=== PATIENT | male | born 1930 | race Caucasian/White ===

== ENCOUNTER → 2016-09-02 | Outpatient (CLI) | payer MEDICARE, OTHER | END | disposition home or self-care (01) | LOC: CFH 14:50 | PROVIDERS: ATTEND Internal Medicine Cardiovascular Disease | DX: I65.23 Occlusion and stenosis of bilateral carotid arteries (principal); I63.8 Other cerebral infarction; G31.89 Other specified degenerative diseases of nervous system; J32.2 Chronic ethmoidal sinusitis; J32.0 Chronic maxillary sinusitis | CPT/HCPCS: 70450; 93880 ==

== ENCOUNTER 2018-01-17 14:44 | Inpatient (IN) | payer MEDICARE, OTHER ==
[~2018-01-17] VITALS: Ht 175.3 cm; Wt 98.7 kg
[2018-01-17] MEDS ORDERED: SODIUM CHLORIDE FLUSH 10ML SYR IVF ONE (15:00)
[2018-01-17 15:08] LABS: BASOPHILS # (AUTO) 0.06 x10^3/uL (0-0.1); BASOPHILS % (AUTO) 1 % (0-1); EOSINOPHILS # (AUTO) 0.29 x10^3/uL (0-0.4); EOSINOPHILS % (AUTO) 4 % (1-7); LYMPHOCYTES # (AUTO) 1.61 x10^3/uL (1-3.4); LYMPHOCYTES % (AUTO) 21 % (22-44); MD NO; MEAN CORPUSCULAR HEMOGLOBIN 33.8 pg (27.5-34.5); MEAN CORPUSCULAR HGB CONC 34.2 g/dL (33.2-36.2); MEAN CORPUSCULAR VOLUME 98.6 fL (81-97); MEAN PLATELET VOLUME 8.1 fL (7.4-10.4); MONOCYTES # (AUTO) 0.66 x10^3/uL (0.2-0.8); MONOCYTES % (AUTO) 9 % (2-9); NEUTROPHILS # (AUTO) 4.92 x10^3/uL (1.8-6.8); NEUTROPHILS % (AUTO) 65 % (42-75); PLATELET COUNT 165 x10^3/uL (130-400); RED BLOOD COUNT 4.08 x10^6/uL (4.38-5.82); RED CELL DISTRIBUTION WIDTH 13.2 % (9.4-14.8)
[2018-01-17 15:19] LABS: ALBUMIN 3.5 g/dL (3.4-5.0); ANION GAP 4 mmol/L (5-15); CALCIUM 8.6 mg/dL (8.5-10.1); CHLORIDE 113 mmol/L (98-107)
[2018-01-17 15:20] LABS: INTERNATIONAL NORMALIZED RATIO 0.99 (0.93-1.1); PROTHROMBIN TIME 10.3 Seconds (9.6-11.5)
[2018-01-17] MEDS ORDERED: ROSU5TAB PO (16:20)
[2018-01-17] MEDS ORDERED: CARB15DR3 EACHEYE (16:20)
[2018-01-17] MEDS ORDERED: toprol PO (16:20)
[2018-01-17] MEDS ORDERED: EYE EACHEYE (16:20)
[2018-01-17] MEDS ORDERED: ASPI-515 PO (16:20)
[2018-01-17] MEDS ORDERED: MORPHINE SULFATE 4 MG/ML, 1ML ONE (16:38)
[2018-01-17] MEDS ORDERED: MORPHINE SULFATE 4 MG/ML, 1ML IVPush PRN ×2 (17:00→17:30)
[2018-01-17] MEDS ORDERED: DOCUSATE 100 MG CAPSULE PO PRN (17:30)
[2018-01-17] MEDS ORDERED: ONDANSETRON 2MG/ML, 2ML IVPush PRN (17:30)
[2018-01-17] MEDS ORDERED: ENALAPRILAT 1.25 MG/ML, 2ML IVPush PRN (17:30)
[2018-01-17] MEDS ORDERED: BISACODYL 10 MG SUPP PR PRN (17:30)
[2018-01-17] MEDS ORDERED: POLYETHYLENE GLYCOL 17 GM PACKET PO PRN (17:30)
[2018-01-17] MEDS ORDERED: SODIUM CHLORIDE 0.9% 1,000 ML IV SCH (18:00)
[2018-01-17] MEDS: ATORVASTATIN 10 MG TABLET PO SCH (20:03)
[2018-01-17] MEDS: ARTIFICIAL TEARS 15 DROP/ML BOTTLE EACHEYE SCH (21:00)
[2018-01-17 21:17] VITALS: BP 154/73
[2018-01-18 02:54] VITALS: BP 156/75
[2018-01-18 05:31] LABS: ANION GAP 5 mmol/L (5-15); CALCIUM 8.3 mg/dL (8.5-10.1); CHLORIDE 111 mmol/L (98-107)
[2018-01-18 05:37] LABS: MEAN CORPUSCULAR HGB CONC 34.7 g/dL (33.2-36.2); MEAN CORPUSCULAR VOLUME 97.9 fL (81-97); MEAN PLATELET VOLUME 8.9 fL (7.4-10.4); PLATELET COUNT 148 x10^3/uL (130-400); RED BLOOD COUNT 3.63 x10^6/uL (4.38-5.82); RED CELL DISTRIBUTION WIDTH 13.3 % (9.4-14.8)
[2018-01-18 06:25] LABS: BASOPHILS # (AUTO) 0.02 x10^3/uL (0-0.1); BASOPHILS % (AUTO) 0 % (0-1); EOSINOPHILS # (AUTO) 0.02 x10^3/uL (0-0.4); EOSINOPHILS % (AUTO) 0 % (1-7); LYMPHOCYTES # (AUTO) 1.73 x10^3/uL (1-3.4); LYMPHOCYTES % (AUTO) 19 % (22-44); MD SCAN; MONOCYTES # (AUTO) 1.05 x10^3/uL (0.2-0.8); MONOCYTES % (AUTO) 12 % (2-9); NEUTROPHILS # (AUTO) 6.11 x10^3/uL (1.8-6.8); NEUTROPHILS % (AUTO) 68 % (42-75)
[2018-01-18] MEDS ORDERED: VANCOMYCIN 1,000 MG ONE (06:28)
[2018-01-18] MEDS ORDERED: EPINEPHRINE 1 MG/ML, 1ML ONE (06:28)
[2018-01-18] MEDS ORDERED: TRANEXAMIC ACID 100 MG/ML, 10ML ONE ×2 (06:28)
[2018-01-18] MEDS ORDERED: KETOROLAC 60 MG/2 ML ONE (06:28)
[2018-01-18] MEDS ORDERED: ROPIvacaine/PF 0.5%, 30 ML ONE (06:28)
[2018-01-18] MEDS ORDERED: FENTANYL PF 250 MCG/5ML ONE (06:42)
[2018-01-18] MEDS ORDERED: PROPOFOL 10 MG/ML, 20ML ONE (06:44)
[2018-01-18] MEDS ORDERED: SUCCINYLCHOLINE 20 MG/ML, 10ML ONE (07:05)
[2018-01-18] MEDS ORDERED: CEFAZOLIN 1,000 MG ONE (07:05)
[2018-01-18] MEDS ORDERED: DEXAMETHASONE 4 MG/ML, 1ML ONE (07:05)
[2018-01-18] MEDS ORDERED: ONDANSETRON 2MG/ML, 2ML ONE (07:05)
[2018-01-18] MEDS ORDERED: PROMETHAZINE 25 MG/ML, 1ML IV PRN (09:00)
[2018-01-18] MEDS ORDERED: CEFAZOLIN PMX 2GM/50ML 50 ML IVPB SCH (09:00)
[2018-01-18] MEDS ORDERED: MORPHINE SULFATE 4 MG/ML, 1ML IVPush PRN (09:00)
[2018-01-18] MEDS ORDERED: OXYcodone 5 MG/5 ML ORAL.SOL UDC PO PRN (09:00)
[2018-01-18] MEDS: ARTIFICIAL TEARS 15 DROP/ML BOTTLE EACHEYE SCH ×3 (09:00→22:33)
[2018-01-18] MEDS ORDERED: ACETAMINOPHEN 325 MG TABLET PO PRN (09:00)
[2018-01-18] MEDS ORDERED: ONDANSETRON ODT 8 MG PO PRN (09:00)
[2018-01-18] MEDS ORDERED: ONDANSETRON 2MG/ML, 2ML IV PRN (09:00)
[2018-01-18] MEDS ORDERED: FENTANYL PF 100 MCG/2ML IV PRN (09:00)
[2018-01-18] MEDS ORDERED: OXYcodone 5 MG/5 ML ORAL.SOL UDC ONE (09:03)
[2018-01-18] MEDS ORDERED: ENALAPRILAT 1.25 MG/ML, 2ML ONE (09:29)
[2018-01-18] MEDS ORDERED: ENALAPRILAT 1.25 MG/ML, 2ML IV ONE (10:00)
[2018-01-18 14:03] VITALS: BP 140/58
[2018-01-18] MEDS: CEFAZOLIN 2,000 MG in SODIUM CHLORIDE 0.9% 50 ML IVPB SCH ×2 (15:00→22:33)
[2018-01-18 19:27] VITALS: BP 144/70
[2018-01-18] MEDS ORDERED: BRIM5DRO2 EACHEYE (21:58)
[2018-01-18] MEDS: ATORVASTATIN 10 MG TABLET PO SCH (22:33)
[2018-01-18] MEDS: ACETAMINOPHEN 325 MG TABLET PO PRN (23:26)
[2018-01-19 00:09] VITALS: BP 150/62
[2018-01-19 05:24] VITALS: BP 138/74
[2018-01-19] MEDS: RIVAROXABAN 10 MG TABLET PO SCH (05:28)
[2018-01-19] MEDS: ACETAMINOPHEN 325 MG TABLET PO PRN ×2 (06:17→21:23)
[2018-01-19 07:58] VITALS: BP 144/69
[2018-01-19 13:42] VITALS: BP 139/68
[2018-01-19] MEDS: ARTIFICIAL TEARS 15 DROP/ML BOTTLE EACHEYE SCH ×3 (15:05→21:24)
[2018-01-19 19:55] VITALS: BP 150/68
[2018-01-19] MEDS: ATORVASTATIN 10 MG TABLET PO SCH (21:24)
[2018-01-20] MEDS: ACETAMINOPHEN 325 MG TABLET PO PRN (02:33)
[2018-01-20 03:09] VITALS: BP 124/71
[2018-01-20] MEDS: RIVAROXABAN 10 MG TABLET PO SCH (05:38)
[2018-01-20 07:48] VITALS: BP 135/76
[2018-01-20] MEDS: TIMOLOL EACHEYE SCH ×2 (09:00→15:00)
[2018-01-20] MEDS: BRIMONIDINE TARTRATE EACHEYE SCH ×2 (09:00→15:00)
[2018-01-20] MEDS ORDERED: METOPROLOL SUCCINATE 25 MG TAB.ER.24H ONE (09:03)
[2018-01-20] MEDS: METOPROLOL SUCCINATE 25 MG TAB.ER.24H PO SCH (09:05)
[2018-01-20] MEDS: ARTIFICIAL TEARS 15 DROP/ML BOTTLE EACHEYE SCH ×3 (09:05→21:45)
[2018-01-20] MEDS ORDERED: RIVA10TA PO (09:29)
[2018-01-20 13:54] VITALS: BP 132/71
[2018-01-20] MEDS ORDERED: MELO7.5T31 PO (14:20)
[2018-01-20] MEDS ORDERED: TRAM50TA2 PO (14:20)
[2018-01-20] MEDS ORDERED: OXYC5CAP2 PO (14:20)
[2018-01-20 20:03] VITALS: BP 122/62
[2018-01-20] MEDS: ATORVASTATIN 10 MG TABLET PO SCH (21:45)
[2018-01-21 02:26] VITALS: BP 137/72
[2018-01-21] MEDS: METOPROLOL SUCCINATE 25 MG TAB.ER.24H PO SCH (06:12)
[2018-01-21] MEDS: RIVAROXABAN 10 MG TABLET PO SCH (06:12)
[2018-01-21 07:55] VITALS: BP 130/69
[2018-01-21] MEDS: BRIMONIDINE TARTRATE EACHEYE SCH (09:00)
[2018-01-21] MEDS: TIMOLOL EACHEYE SCH (09:00)
[2018-01-21] MEDS: ARTIFICIAL TEARS 15 DROP/ML BOTTLE EACHEYE SCH (09:05)
== END 2018-01-21 11:55 | DRG 470 ==
LOC: ED 16:00 → EDIP 17:01 → 4NOR 17:45
PROVIDERS: ADMIT Internal Medicine; ATTEND Internal Medicine
PROC: 0SRR019 Replacement of Right Hip Joint, Femoral Surface with Metal Synthetic Substitute, Cemented, Open Approach (ICD-10-PCS; principal; 2018-01-18 07:00)
DX: S72.001A Fracture of unspecified part of neck of right femur, initial encounter for closed fracture (principal); S52.501A Unspecified fracture of the lower end of right radius, initial encounter for closed fracture; I11.9 Hypertensive heart disease without heart failure; E78.5 Hyperlipidemia, unspecified; E78.00 Pure hypercholesterolemia, unspecified; H40.9 Unspecified glaucoma; H54.62 Unqualified visual loss, left eye, normal vision right eye; Z86.73 Personal history of transient ischemic attack (TIA), and cerebral infarction without residual deficits; Z85.828 Personal history of other malignant neoplasm of skin; Z79.01 Long term (current) use of anticoagulants; Z82.49 Family history of ischemic heart disease and other diseases of the circulatory system; Z86.718 Personal history of other venous thrombosis and embolism; Z87.891 Personal history of nicotine dependence; Z96.641 Presence of right artificial hip joint; W18.43XA Slipping, tripping and stumbling without falling due to stepping from one level to another, initial encounter; Y93.89 Activity, other specified; Y92.89 Other specified places as the place of occurrence of the external cause; Y99.8 Other external cause status
CPT/HCPCS: 36415; 71045; 72170; 80048; 82040; 85014; 85018; 85025; 85610; 85730; 88305; 88311; 93005; 96374; 99285; C1713; G0378; J0171; J0690; J1100; J1885; J2405; J2704; J2795; J3010; J3370; C1762; C1776; J0330; J7030

== ENCOUNTER → 2018-03-19 | Outpatient (CLI) | payer MEDICARE, OTHER ==
[~2018-03-19] MED LIST: ASPI-515 PO; BRIM5DRO2 EACHEYE; CARB15DR3 EACHEYE; EYE EACHEYE; MELO7.5T31 PO; OXYC5CAP2 PO; RIVA10TA PO; ROSU5TAB PO; TRAM50TA2 PO; toprol PO
== END | disposition home or self-care (01) ==
LOC: CFH 14:13
PROVIDERS: ATTEND Internal Medicine Cardiovascular Disease
DX: I08.1 Rheumatic disorders of both mitral and tricuspid valves (principal); E78.5 Hyperlipidemia, unspecified; Z86.73 Personal history of transient ischemic attack (TIA), and cerebral infarction without residual deficits
CPT/HCPCS: 93306